=== PATIENT | female | born 1975 | race Caucasian/White ===

== ENCOUNTER → 2025-02-08 09:00 | Outpatient (REF) | payer BC, SELFPAY | LOC: DHSLP 09:00 | PROVIDERS: ATTENDING PHYSICIAN Internal Medicine Critical Care Medicine; FAMILY PHYSICIAN Nurse Practitioner Primary Care | DX: G47.30 Sleep apnea, unspecified (principal); R06.83 Snoring; G47.00 Insomnia, unspecified | CPT/HCPCS: 95800 ==